=== PATIENT | female | born 1970 | race Caucasian/White ===

== ENCOUNTER 2021-01-22 09:07 | Outpatient (REF) | payer BC, SELFPAY ==
[2021-01-22 11:16] LABS: MANUAL DIFF FLAG NO
[2021-01-22 11:23] LABS: Basophils Percent Auto 0.5 % (0-2); Eosinophils Absolute Auto 0.1 X10*3/uL (0.0-0.4); Eosinophils Percent Auto 1.1 % (0-4); Hematocrit 43.2 % (37-47); Hemoglobin 14.1 g/dl (12.0-16.0); Imm Gran Abs Auto 0.01 X10*3/uL (0.00-0.03); Imm Gran Pct Auto 0.2 % (0.0-0.4); Lymphocytes Percent Auto 36.1 % (20-40); Mean Corpuscular HGB Conc 32.6 g/dl (31.0-35.0); Mean Corpuscular Hemoglobin 30.1 pg (27.0-33.0); Mean Corpuscular Volume 92.1 fL (80-98); Mean Platelet Volume 9.4 fL (9.4-12.3); Monocytes Absolute Auto 0.4 X10*3/uL (0.1-1.2); Monocytes Percent Auto 7.5 % (2-11); Neutrophils Percent Auto 54.6 % (45-73); Platelet Count 287 X10*3/uL (160-400); Red Blood Count 4.69 X10*6/uL (4.20-5.50); Red Cell Distribution Width 12.7 % (11.0-16.0); White Blood Count 5.5 X10*3/uL (4.8-10.8)
[2021-01-22 11:44] LABS: Alanine Aminotransferase 30 U/L (0-31); Anion Gap 12 (12-20); Aspartate Amino Transferase 24 U/L (5-31); Blood Urea Nitrogen 14 mg/dL (9-16); Calcium 9.6 mg/dL (8.4-10.2); Carbon Dioxide 30 mmol/L (22-29); Chloride 102 mmol/L (96-108); Cholesterol 281 mg/dL; Estimated Glomerular Filt Rate > 60; Glucose Fasting 91 mg/dL (60-99); HDL Cholesterol 46 mg/dL; LDL Cholesterol Calculated 168 mg/dl; Potassium 4.3 mmol/L (3.3-5.1); Sodium 140 mmol/L (135-145); Triglycerides 336 mg/dL
[2021-01-22 12:08] LABS: Free T4 (Free Thyroxine) 0.78 ng/dL (0.71-1.85); Thyroid Stimulating Hormone 4.63 uIU/mL (0.32-4.0); Vitamin D 25-OH Total 52.2 ng/mL (>30)
[2021-01-22 12:16] LABS: Folate > 20.0 ng/mL (> or = 4.0); Vitamin B12 720 pg/mL (200-900)
[2021-01-23 19:22] LABS: Thyroid Peroxidase Antibodies 1 IU/mL (<9)
[2021-01-24 16:16] LABS: HPV mRNA E6/E7 rflx Not Detected (Not Detected)
== END 2021-01-22 09:08 | disposition home or self-care (01) ==
LOC: HO.HMGCLDS 09:07
PROVIDERS: PCP Internal Medicine; Visit Provider Internal Medicine
DX: Z00.01 Encounter for general adult medical examination with abnormal findings (principal); Z11.51 Encounter for screening for human papillomavirus (HPV); Z78.0 Asymptomatic menopausal state; R53.81 Other malaise; R53.83 Other fatigue; E66.9 Obesity, unspecified; I10 Essential (primary) hypertension; E03.9 Hypothyroidism, unspecified
CPT/HCPCS: 36415; 80048; 80061; 82306; 82607; 82746; 84439; 84443; 84450; 84460; 85025; 86376; 87624; 88142

== ENCOUNTER 2021-03-28 08:02 | Outpatient (REF) | payer BC, SELFPAY ==
--- NOTE | ~2021-03-28 | MM_ITS ---
EXAMINATION: MM SCREENING DIGITAL BREAST TOMOSYNTHESIS, BILATERAL CLINICAL INFORMATION: Screening. Asymptomatic. The lifetime risk of breast cancer based on the Tyrer-Cuzick Model is 6%. COMPARISON: Mammography: 04/27/2019, 05/29/2014 TECHNIQUE: Digital breast tomosynthesis is performed in both the craniocaudal and mediolateral oblique views along with computer-aided detection (CAD). Synthesized 2D images are generated from the tomosynthesis. FINDINGS: There are scattered areas of fibroglandular density (ACR BI-RADS breast composition Category b). There are no significant masses, abnormal calcifications, or other abnormalities. Parenchymal pattern is similar to prior studies. No developing density. No architectural abnormality. The axilla and skin contours are unremarkable. MM/MM tomosynthesis screening BI IMPRESSION: There are no significant changes from prior study. ASSESSMENT: BI-RADS 1: Negative RECOMMENDATION: Routine annual mammography screening. This patient's information was entered into a reminder system with a target due date for their next mammogram.
== END 2021-03-28 08:03 | disposition home or self-care (01) ==
LOC: HO.MAMMO 08:02
PROVIDERS: Visit Provider Internal Medicine
DX: Z12.31 Encounter for screening mammogram for malignant neoplasm of breast (principal)
CPT/HCPCS: 77063; 77067

== ENCOUNTER 2022-05-15 08:39 | Outpatient (REF) | payer BC, SELFPAY ==
--- NOTE | ~2022-05-15 | MM_ITS ---
EXAMINATION: MM SCREENING DIGITAL BREAST TOMOSYNTHESIS, BILATERAL CLINICAL INFORMATION: Screening. Asymptomatic. The lifetime risk of breast cancer based on the Tyrer-Cuzick Model is 6%. COMPARISON: Mammography: 03/28/2021, 04/27/2019, 05/29/2014 TECHNIQUE: Digital breast tomosynthesis is performed in both the craniocaudal and mediolateral oblique views along with computer-aided detection (CAD). Synthesized 2D images are generated from the tomosynthesis. FINDINGS: There are scattered areas of fibroglandular density (ACR BI-RADS breast composition Category b). There are no significant masses, abnormal calcifications, or other abnormalities. Parenchymal pattern is similar to prior studies. No architectural abnormality. No significant changes. MM/MM tomosynthesis screening BI IMPRESSION: No mammographic evidence of malignancy. ASSESSMENT: BI-RADS 1: Negative RECOMMENDATION: Routine annual mammography screening. This patient's information was entered into a reminder system with a target due date for their next mammogram.
== END 2022-05-15 08:40 | disposition home or self-care (01) ==
LOC: HO.MAMMO 08:39
PROVIDERS: PCP Internal Medicine; Visit Provider Internal Medicine
DX: Z12.31 Encounter for screening mammogram for malignant neoplasm of breast (principal)
CPT/HCPCS: 77063; 77067

== ENCOUNTER 2022-06-16 09:51 | Outpatient (AMB) | payer BC, SELFPAY ==
--- NOTE | 2022-06-16 09:54 | MHC.PC.OV ---
Vital Signs 06/16/22 09:57 Height 5 ft 1 in Weight 163 lb BMI 30.8 BP 120/72 Blood Pressure Location Lt brachial Position Sitting Pulse 87 Pulse Source Pulse Oximeter Pulse Oximetry (%) 97 Oxygen Delivery Method Room Air Intake Visit Reasons: f/u [facility] stomach pain Intake Note: Pt is here today to f/u [facility] stomach pain Allergies Penicillins Allergy (Unknown, Verified 06/03/23 09:53) HIVES,RASH Medication List - Last Reconciled 06/16/22 by Sumaya Beck MD albuterol sulfate 90 mcg/actuation (ProAir HFA) 2 puffs inhalation Q6H PRN ascorbic acid (vitamin C) mg PO cholecalciferol (vitamin D3) 25 mcg PO DAILY multivitamin 1 tab PO DAILY omega-3 fatty acids (Fish Oil Concentrate) 1,000 mg PO BID Tobacco use date assessed: 06/16/22 HPI f/u [facility] [facility] stomach pain HPI Details 53-year-old lady here today for follow-up after recent ER visit where she was treated for acute sigmoid diverticulitis approximately a week ago. CBC at the ER showed slight leukocytosis but otherwise was unremarkable, urinalysis showed no evidence of UTI, and CT abdomen and pelvis showed uncomplicated sigmoid diverticulosis. Patient was discharged home, was able to tolerate p.o. intake, she was prescribed Cipro and Flagyl, and given morphine as needed for pain control. With complaints of any fever, abdominal pain, nausea vomiting at present. [facility] Medical History Mild intermittent asthma Seasonal allergies Acute diverticulitis Acquired hypothyroidism Mixed dyslipidemia Obesity (BMI 30.0-34.9) Surgical History Hx of colonoscopy Social History Housing: House Patient Tobacco Use Status: Former Tobacco user Years Smoked: 8 yrs e-Cigarette/Vaping Use: Never Used service: No Current occupational status: employed Cognitive needs: No Hearing needs: No Vision needs: Yes Questionnaire PHQ-9 Over the last 2 weeks, how often have you been bothered by any of the following problems? 1. Little interest or pleasure in doing things: not at all 2. Feeling down, depressed, or hopeless: not at all 3. Trouble falling or staying asleep, or sleeping too much: several days 4. Feeling tired or having little energy: several days 5. Poor appetite or overeating: not at all 6. Feeling bad about yourself - or that you are a failure or have let yourself or your family down: not at all 7. Trouble concentrating on things, such as reading the newspaper or watching television: not at all 8. Moving or speaking so slowly that other people could have noticed. Or the opposite - being so fidgety or restless that you have been moving around a lot more than usual: not at all 9. Thoughts that you would be better off or of hurting yourself in some way: not at all Total score: 2 Depression Screening Interpretation: Negative 85311 - PHQ-9 Billing: Yes Source: Developed by Drs. Rafael Fountain, Rosey Mercado, Dante Sheldon and colleagues, with an educational allison from [employer]. Thrive Questionnaire Date Thrive assessed: 01/22/21 What is your living situation today?: I have a steady place to live Within the past 12 months, did the food you bought not last and you didn't have the money to get more?: Never true Within the past 12 months, did you worry whether your food would run out before you got money to buy more?: Never true Do you have trouble paying for medicines?: No Do you have trouble getting transportation to medical appointments?: No Do you have trouble paying your heating and electricity bill?: No Do you have trouble taking care of your child, family member or friend?: No Do you have trouble with day-to-day activities such as bathing, preparing meals, shopping, managing finances, etc.?: No Are you currently unemployed and looking for a job?: No Are you interested in more education?: No AUDIT C Alcohol Use Questionnaire (AUDIT-C) 1. How often do you have a drink containing alcohol?: Monthly or less 2. How many drinks containing alcohol do you have on a typical day when you are drinking?: 1 or 2 3. How often do you have six or more drinks on one occasion?: Never Total Score: 1 Score Reviewed/Action Taken: Yes CHERI-7 AMB Questionnaire CHERI-7 Date CHERI - 7 assessed: 06/16/22 Feeling nervous, anxious, or on edge: 1 = Several days Not being able to stop or control worryin = Several days Worrying too much about different things: 1 = Several days Trouble relaxin = Not at all Being so restless that it is hard to sit still: 0 = Not at all Becoming easily annoyed or irritable: 1 = Several days Feeling afraid as if something awful might happen: 0 = Not at all Total CHERI-7 score (0-4 normal; 5-9 mild; 10-14 moderate; 15-21 severe): 4 Source: Developed by Drs. Rafael Fountain, Rosey Mercado, Dante Sheldon and colleagues, with an educational allison from [employer]. CHERI-7 Assessment Billing CHERI-7 Assessment Tool: CHERI-7 Assessment 93279 Review of Systems Const All systems reviewed & are unremarkable except as noted in HPI and below Physical exam (Primary Care) Vital Signs: Last Vital Signs Pulse 87 06/16/22 09:57 BP 120/72 06/16/22 09:57 Pulse Ox 97 06/16/22 09:57 Oxygen Delivery Method Room Air 06/16/22 09:57 BMI result Body Mass Index 30.8 Tobacco/Smoking Status: Tobacco use Status Tobacco use date assessed 06/16/22 06/16/22 10:00 Patient Tobacco Use Status Former Tobacco user 06/16/22 09:55 e-Cigarette/Vaping Use Never Used 06/16/22 09:55 PHQ-9: PHQ-9 Score PHQ-9: Total score 2 06/16/22 11:47 Depression Screening Interpretation: Negative Thrive Assessment: Date of Thrive Assessment Date Thrive assessed 01/22/21 06/16/22 09:55 HENMT Head: Yes normocephalic Mouth: Normal oral and palatal mucosa present and moist mucous membranes Resp Auscultation: clear to auscultation bilaterally Cardio Rate: regular rate Rhythm: regular rhythm Heart sounds: S1 normal heart sound present and S2 normal heart sound present GI Inspection: Yes normal to inspection Palpation (GI): Soft to palpation, nontender, no guarding and no masses Assessment and Plan Assessment & Plan (1) Acute diverticulitis: Code(s): K57.92 - Diverticulitis of intestine, part unspecified, without perforation or abscess without bleeding Plan: Currently symptomatic, will repeat another CBC with differential. Patient already completed taking all her prescribed antibiotic Orders: Orders Complete Blood Count Auto Diff 06/16/22 K57.92 - Diverticulitis of intestine, part unspecified, without perforation or abscess without bleeding Coding Level of Care Code Est Pt Level 3 (05570) Diagnoses Acute diverticulitis K57.92 Additional Codes CHERI-7 Assessment Billing - CHERI-7 Assessment Tool: CHERI-7 Assessment 13325 ([id number])
[2022-06-16 09:57] VITALS: BP 120/72; PULSE 87; O2SAT 97; BMI 30.8
== END 2022-06-16 11:49 | disposition home or self-care (01) ==
LOC: HO.HMGC 09:52
PROVIDERS: PCP Internal Medicine; Visit Provider Internal Medicine
DX: K57.92 Diverticulitis of intestine, part unspecified, without perforation or abscess without bleeding (principal)
CPT/HCPCS: 99499

== ENCOUNTER 2022-06-16 10:44 | Outpatient (REF) | payer BC, SELFPAY ==
[2022-06-16 13:59] LABS: MANUAL DIFF FLAG NO
[2022-06-16 14:17] LABS: Basophils Absolute Auto 0.1 X10*3/uL (0.0-0.2); Eosinophils Absolute Auto 0.1 X10*3/uL (0.0-0.4); Eosinophils Percent Auto 1.3 % (0-4); Hematocrit 39.4 % (37.0-47.0); Hemoglobin 12.6 g/dl (12.0-16.0); Imm Gran Abs Auto 0.02 X10*3/uL (0.00-0.03); Imm Gran Pct Auto 0.3 % (0.0-0.4); Lymphocytes Absolute Auto 1.7 X10*3/uL (1.2-4.9); Lymphocytes Percent Auto 28.5 % (20-40); Mean Corpuscular Hemoglobin 29.4 pg (27.0-33.0); Mean Corpuscular Volume 91.8 fL (80.0-98.0); Mean Platelet Volume 9.4 fL (9.4-12.3); Monocytes Absolute Auto 0.5 X10*3/uL (0.1-1.2); Monocytes Percent Auto 8.2 % (2-11); Neutrophils Absolute Auto 3.7 x10*3/uL (2.0-8.3); Neutrophils Percent Auto 60.7 % (45-73); Platelet Count 385 X10*3/uL (160-400); Red Blood Count 4.29 X10*6/uL (4.20-5.50); Red Cell Distribution Width 12.5 % (11.0-16.0); White Blood Count 6.1 X10*3/uL (4.8-10.8)
== END 2022-06-16 10:45 | disposition home or self-care (01) ==
LOC: HO.HMGCLDS 10:44
PROVIDERS: PCP Internal Medicine; Visit Provider Internal Medicine
DX: K57.92 Diverticulitis of intestine, part unspecified, without perforation or abscess without bleeding (principal)
CPT/HCPCS: 36415; 85025

== ENCOUNTER 2023-03-24 15:26 | Outpatient (AMB) | payer BC, SELFPAY ==
[2023-03-24 16:07] VITALS: BP 148/90; PULSE 79; TEMP 36.3; O2SAT 98; BMI 31.2
--- NOTE | 2023-03-24 16:07 | MHC.OFFWIV ---
Intake Vital Signs 03/24/23 16:07 Height 5 ft 1 in Weight 165 lb BMI 31.2 BP 148/90 H Blood Pressure Location Rt brachial Position Sitting Pulse 79 Pulse Source Pulse Oximeter Temp 97.4 F Temp Source Temporal Artery Scan Pulse Oximetry (%) 98 Oxygen Delivery Method Room Air Intake Visit Reasons: EP Migraine Intake Note: pt is here today for migraine started last 3 months Patient Tobacco Use Status: Former Tobacco user Allergies Penicillins Allergy (Unknown, Verified 03/24/23 16:55) HIVES,RASH Do you need a note to return to daycare/school/sports/work: No HPI HPI Comments History of Present Illness Details This is a 52-year-old female with past medical history of hyperlipidemia and hyperthyroidism not currently taking any prescribed medications presenting for evaluation of a headache that she has had daily for the past 3 months. Patient reports having increased stressors in her life including caring for her mother and stress at her workplace. Patient is taking Advil only without relief of her headache. Patient states that she has recently been evaluated for visual changes in her left eye for which she is going to see a neuro-forest fire equipment operator in [place]. Patient is unaware of the last time she saw her primary care physician however has been told previously that her blood pressure has been elevated. Patient denies having any lightheadedness, syncope, neck pain, fevers, chills or chest pain. [facility] Medical History Acute diverticulitis Acquired hypothyroidism Mixed dyslipidemia Obesity (BMI 30.0-34.9) Mild intermittent asthma Surgical History Hx of colonoscopy Social History Housing: House Patient Tobacco Use Status: Former Tobacco user Years Smoked: 8 yrs e-Cigarette/Vaping Use: Never Used service: No Current occupational status: employed Cognitive needs: No Hearing needs: No Vision needs: Yes Review of Systems Const All systems reviewed & are unremarkable except as noted in HPI and below Denies chills, Denies difficulty sleeping, Denies fever(s) and Denies weakness Eyes Reports no additional complaints and Reports other (visual changes left eye) ENT Reports no additional complaints and Reports Normal hearing present Card Reports as per HPI Resp Reports as per HPI Skin/Breast Reports system reviewed and no additional complaints, except as documented Neuro Details: daily headaches Reports Normal hearing present, Reports Abnormal speech present and Denies weakness Psych Reports anxiety Physical Exam Vital Signs: Last Vital Signs Temp 97.4 F 03/24/23 16:07 Pulse 79 03/24/23 16:07 BP 148/90 H 03/24/23 16:07 Pulse Ox 98 03/24/23 16:07 Oxygen Delivery Method Room Air 03/24/23 16:07 BMI result Body Mass Index 31.2 Const General: cooperative, healthy appearing, comfortable and no acute distress Nutritional Appearance: well nourished Orientation/consciousness: patient oriented x3 Limitations: no limitations HEENT Head: Yes normocephalic and Yes atraumatic Ears: hearing grossly normal bilaterally, external ears normal, TM's normal bilaterally and EAC's normal General nose exam: Normal external nose present Face and sinus: Yes normal facial exam, No sinus tenderness and No Facial tenderness on exam of face and sinuses Mouth: Normal oral and palatal mucosa present Teeth and gingiva: dentition normal Eyes General: appearance normal, both eyes and all related structures Alignment and Position: alignment normal Eyelids: Yes eyelids normal Conjunctivae: conjunctivae normal Sclerae: sclerae normal Pupils: Equal, round and reactive pupils present Direct Ophthalmoscopy: no photophobia Resp Effort & Inspection: normal respiratory effort Auscultation: clear to auscultation bilaterally Cardio Rate: regular rate Rhythm: regular rhythm Neuro General: patient oriented x3, gait normal, no focal motor deficits and CN's II-XI intact bilaterally Cranial nerves: Yes CN's II-XII intact bilaterally, Yes Equal, round and reactive pupils present, Yes Midline tongue present and Yes Normal hearing present Cognition (Neuro): normal cognition Speech: Abnormal speech present Gait exam (Neuro): Normal gait present Psych Appearance: grossly normal Mental Status: mental status grossly normal Attitude: cooperative Insight: Good insight present (Psych) Judgement: Good judgement present (Psych) Assessment & Plan Assessment & Plan (1) Chronic headaches: Code(s): R51.9 - Headache, unspecified; G89.29 - Other chronic pain Plan: Patient will be prescribed Fioricet; patient is encouraged to follow-up with her PCP when possible for a complete physical examination. She is neurologically intact, there are no focal neurological deficits and patient was urged to consider a higher level of self-care given the caregiver status in terms of her mother. Patient will call tomorrow to schedule follow-up with her PCP. Medications: New yskmkwigez-sdashodtvjzxi-koat 50-300-40 mg (Fioricet) 1 cap PO Q6H PRN 10 caps 0RF pain Coding Level of Care Code Est Pt Level 3 (88702) Diagnoses Chronic headaches R51.9; G89.29 Time Spent (min) 25
== END 2023-03-24 17:55 | disposition home or self-care (01) ==
PROVIDERS: PCP Internal Medicine; Visit Provider Physician Assistant
DX: R51.9 Headache, unspecified (principal); G89.29 Other chronic pain
CPT/HCPCS: 99213

== ENCOUNTER 2023-05-21 08:32 | Outpatient (REF) | payer BC, SELFPAY | END 2023-05-21 08:33 | disposition home or self-care (01) | LOC: HO.MAMMO 08:32 | PROVIDERS: PCP Internal Medicine; Visit Provider Internal Medicine | DX: Z12.31 Encounter for screening mammogram for malignant neoplasm of breast (principal) | CPT/HCPCS: 77063; 77067 ==

== ENCOUNTER → 2023-05-21 08:45 | Outpatient (BNV) | payer BC, SELFPAY | PROVIDERS: PCP Internal Medicine; Visit Provider Radiology Diagnostic Radiology | DX: Z12.31 Encounter for screening mammogram for malignant neoplasm of breast (principal) | CPT/HCPCS: 77063; 77067 ==

== ENCOUNTER 2023-06-03 09:26 | Outpatient (AMB) | payer BC, SELFPAY ==
[2023-06-03 09:34] VITALS: BP 135/80; PULSE 88; O2SAT 100; BMI 31.2
--- NOTE | 2023-06-03 09:34 | MHC.PC.OV ---
Vital Signs 06/03/23 09:34 Height 5 ft 1 in Weight 165 lb BMI 31.2 BP 135/80 Blood Pressure Location Rt brachial Position Sitting Pulse 88 Pulse Source Pulse Oximeter Pulse Oximetry (%) 100 Oxygen Delivery Method Room Air Intake Visit Reasons: PE/pap Intake Note: Pt is here today for her PE and papsmear: Last mammogram 05/21/23, papsmear 01/23/21 and colonoscopy 08/29/19 Post menopausal: Yes Allergies Penicillins Allergy (Unknown, Verified 06/03/23 09:53) HIVES,RASH Medication List - Last Reconciled 06/03/23 by Sumaya Beck MD albuterol sulfate 90 mcg/actuation (ProAir HFA) 2 puffs inhalation Q6H PRN Tobacco use date assessed: 06/03/23 Dental Screening Dental Screen Date: 06/03/23 Did you have a dental visit in the last 12 months?: Yes Did you have a dental problem in the last 6 months where you did not have access to dental care?: Yes Was dental information given to patient?: Patient has dentist HPI PE/pap HPI Details 53-year-old lady here today for physical exam. Her last mammogram was done 05/21/23, papsmear 01/23/21 and colonoscopy 08/29/19, due for repeat colonoscopy in [address] Carrera due to positive family history of colon cancer and removal of polyp on last procedure. She has hypothyroidism, currently not on any medication at present time, clinically euthyroid on last visit. She has mild intermittent asthma, rarely needing to use her inhaler, takes [id number] antihistamines for seasonal allergies. She has mixed hyperlipidemia, currently trying to control through diet and exercise. [facility] Medical History Mild intermittent asthma Seasonal allergies Acute diverticulitis Acquired hypothyroidism Mixed dyslipidemia Obesity (BMI 30.0-34.9) Surgical History Hx of colonoscopy Social History Housing: House Patient Tobacco Use Status: Former Tobacco user Years Smoked: 8 yrs e-Cigarette/Vaping Use: Never Used service: No Current occupational status: employed Cognitive needs: No Hearing needs: No Vision needs: Yes Questionnaire PHQ-9 Over the last 2 weeks, how often have you been bothered by any of the following problems? 1. Little interest or pleasure in doing things: several days 2. Feeling down, depressed, or hopeless: not at all 3. Trouble falling or staying asleep, or sleeping too much: several days 4. Feeling tired or having little energy: several days 5. Poor appetite or overeating: several days 6. Feeling bad about yourself - or that you are a failure or have let yourself or your family down: not at all 7. Trouble concentrating on things, such as reading the newspaper or watching television: not at all 8. Moving or speaking so slowly that other people could have noticed. Or the opposite - being so fidgety or restless that you have been moving around a lot more than usual: not at all 9. Thoughts that you would be better off or of hurting yourself in some way: not at all Total score: 4 Depression Screening Interpretation: Negative Depression Screening Done: Yes [id number] - PHQ-9 Billing: Yes Source: Developed by Drs. Rafael Fountain, Rosey Mercado, Dante Sheldon and colleagues, with an educational allison from [employer]. Thrive Questionnaire Date Thrive assessed: 06/03/23 I am a: Patient What is your living situation today?: I have a steady place to live Within the past 12 months, did the food you bought not last and you didn't have the money to get more?: Never true Within the past 12 months, did you worry whether your food would run out before you got money to buy more?: Never true Do you have trouble paying for medicines?: No Do you have trouble getting transportation to medical appointments?: No Do you have trouble paying your heating and electricity bill?: No Do you have trouble taking care of your child, family member or friend?: No Do you have trouble with day-to-day activities such as bathing, preparing meals, shopping, managing finances, etc.?: No Are you currently unemployed and looking for a job?: No Are you interested in more education?: No THRIVE Score: 0 AUDIT C Alcohol Use Questionnaire (AUDIT-C) 1. How often do you have a drink containing alcohol?: Monthly or less 2. How many drinks containing alcohol do you have on a typical day when you are drinking?: 1 or 2 3. How often do you have six or more drinks on one occasion?: Never Total Score: 1 CHERI-7 AMB Questionnaire CHERI-7 Date CHERI - 7 assessed: 06/03/23 Feeling nervous, anxious, or on edge: 1 = Several days Not being able to stop or control worryin = Several days Worrying too much about different things: 1 = Several days Trouble relaxin = Not at all Being so restless that it is hard to sit still: 0 = Not at all Becoming easily annoyed or irritable: 1 = Several days Feeling afraid as if something awful might happen: 0 = Not at all Total CHERI-7 score (0-4 normal; 5-9 mild; 10-14 moderate; 15-21 severe): 4 Source: Developed by Drs. Rafael Fountain, Rosey Mercado, Dante Sheldon and colleagues, with an educational allison from [employer]. CHERI-7 Assessment Billing CHERI-7 Assessment Tool: CHERI-7 Assessment 61588 Review of Systems Const Denies chills, Denies difficulty sleeping, Denies fever(s) and Denies weakness Eyes Details: Complaining of distortion of vision in left eye, currently seeing [facility] neuro ophthalmology department and is to be scheduled for an MRI of the orbits Sees [place] [facility] for her regular eye exam Reports other (visual changes left eye) ENT Reports no additional complaints Card Reports no additional complaints and Denies dyspnea Resp Denies chest congestion, Denies cough, Denies dyspnea and Denies wheezing GI Reports no additional complaints Reports no additional complaints Musc Reports no additional complaints Skin/Breast Denies breast pain, Denies breast mass, Denies lesions and Denies rash Neuro Denies weakness Psych Reports as per HPI Endo Reports no additional complaints Moreno/Lymph Reports no additional complaints Aller/Immun Reports as per HPI and Denies wheezing Physical exam (Primary Care) Vital Signs: Last Vital Signs Pulse 88 06/03/23 09:34 BP 135/80 06/03/23 09:34 Pulse Ox 100 06/03/23 09:34 Oxygen Delivery Method Room Air 06/03/23 09:34 BMI result Body Mass Index 31.2 Tobacco/Smoking Status: Tobacco use Status Tobacco use date assessed 06/03/23 06/03/23 09:39 Patient Tobacco Use Status Former Tobacco user 06/03/23 09:39 e-Cigarette/Vaping Use Never Used 06/03/23 09:39 PHQ-9: PHQ-9 Score PHQ-9: Total score 4 06/05/23 15:37 Depression Screening Interpretation: Negative Thrive Assessment: Date of Thrive Assessment Date Thrive assessed 06/03/23 06/03/23 09:59 Const Orientation/consciousness: patient oriented x3 HENMT Head: Yes normocephalic Ears: hearing grossly normal bilaterally, external ears normal and TM's normal bilaterally General nose exam: Normal external nose present Face and sinus: Yes face symmetric Mouth: Normal oral and palatal mucosa present, oropharynx normal and moist mucous membranes Eyes General: appearance normal, both eyes and all related structures Neck Neck: Yes normal visual inspection, Yes full ROM, Yes no lymphadenopathy and Yes supple Thyroid: Thyroid normal (Nonpalpable) Chest Chest palpation & inspection: normal inspection of the chest Breast/axilla inspection: normal inspection of the breasts Breast/axilla palpation: normal palpation of the breasts Resp Auscultation: clear to auscultation bilaterally Cardio Rate: regular rate Rhythm: regular rhythm Heart sounds: S1 normal heart sound present and S2 normal heart sound present GI Inspection: Yes normal to inspection Palpation (GI): Soft to palpation, nontender, no guarding and no masses General: Yes bladder normal to inspection, Yes bladder normal to palpation and Yes no CVA tenderness External Female Exam: normal external appearance and normal appearance of the urethra Speculum Exam - Vagina: normal appearance of the vagina, normal palpation and normal vaginal discharge Speculum Exam - Cervix: normal appearance of the cervix, normal palpation and Cervical os open Bimanual exam- vagina & uterus: normal palpation, bladder normal to palpation, normal palpation and non-tender Bimanual Exam- Adnexa, other: normal adnexae, no masses, normal and No adnexal tenderness OB/external & speculum: Cervical os open Back/Spine/Pelvis Back: no CVA tenderness and No back tenderness Skin General skin exam: no rashes or lesions noted Neuro General: patient oriented x3, gait normal, tone normal, moves all extremities, Normal light touch and pain sensation and no focal motor deficits Gait exam (Neuro): Normal gait present Extrem General: Yes full ROM, Yes no joint enlargement, Yes no pedal edema and Yes normal gait Psych Appearance: grossly normal and well kempt Mental Status: mental status grossly normal Speech and movement: Normal speech and movement present Affect: normal affect Attitude: cooperative Thought process: Normal thought process present Thought content: Normal thought content present Assessment and Plan Assessment & Plan (1) Annual visit for general adult medical examination with abnormal findings: Code(s): Z00.01 - Encounter for general adult medical examination with abnormal findings Plan: Will check appropriate labs. Continue regular dental visit every 6 months and regular eye exams, currently has an appointment for follow-up with [facility] Neuro-Ophthalmology department. Take adequate calcium in diet and vitamin-D 3 at 2000 IU per cap once a day, in addition to weight-bearing exercises to help maintain good muscle tone and weight control. Instructed to do self-breast exam, and continue yearly mammogram. Cervical cancer screening and pelvic exam done today, Colonoscopy up-to-date, due again in 2024 . Declined getting any COVID booster flu vaccine, (2) Acquired hypothyroidism: Code(s): E03.9 - Hypothyroidism, unspecified Plan: TSH and free T4 ordered (3) Mixed dyslipidemia: Code(s): E78.2 - Mixed hyperlipidemia Plan: Fasting lipid panel ordered today, reinforced importance of following low-cholesterol diet and getting regular exercise. (4) Obesity (BMI 30.0-34.9): Code(s): E66.9 - Obesity, unspecified Plan: Discussed need to increase activity and wt reduction. Recommended focusing on improving your health instead of dieting. : Eat Mediterranean diet, limit foods high in fat, sugar, and calories, eat slowly, pay attention to portion sizes, plan your meals ahead of time, start regular physical activity 150 minutes of moderate intensity exercise or 90 minutes/week of cardio exercise (5) Cervical cancer screening: Code(s): Z12.4 - Encounter for screening for malignant neoplasm of cervix Plan: Pap smear done today Orders: Orders Free T4 (Free Thyroxine) 06/03/23 E03.9 - Hypothyroidism, unspecified, E66.9 - Obesity, unspecified, E78.2 - Mixed hyperlipidemia, J30.2 - Other seasonal allergic rhinitis, Z00.01 - Encounter for general adult medical examination with abnormal findings Lipid Panel 06/03/23 E03.9 - Hypothyroidism, unspecified, E66.9 - Obesity, unspecified, E78.2 - Mixed hyperlipidemia, J30.2 - Other seasonal allergic rhinitis, Z00.01 - Encounter for general adult medical examination with abnormal findings Aspartate Amino Transferase 06/03/23 E03.9 - Hypothyroidism, unspecified, E66.9 - Obesity, unspecified, E78.2 - Mixed hyperlipidemia, J30.2 - Other seasonal allergic rhinitis, Z00.01 - Encounter for general adult medical examination with abnormal findings Vitamin B12 and Folate 06/03/23 E03.9 - Hypothyroidism, unspecified, E66.9 - Obesity, unspecified, E78.2 - Mixed hyperlipidemia, J30.2 - Other seasonal allergic rhinitis, Z00.01 - Encounter for general adult medical examination with abnormal findings Vitamin D 25-OH Total 06/03/23 E03.9 - Hypothyroidism, unspecified, E66.9 - Obesity, unspecified, E78.2 - Mixed hyperlipidemia, J30.2 - Other seasonal allergic rhinitis, Z00.01 - Encounter for general adult medical examination with abnormal findings Pap Smear 06/03/23 Z12.4 - Encounter for screening for malignant neoplasm of cervix Thyroid Stimulating Hormone 06/03/23 E03.9 - Hypothyroidism, unspecified, E66.9 - Obesity, unspecified, E78.2 - Mixed hyperlipidemia, J30.2 - Other seasonal allergic rhinitis, Z00.01 - Encounter for general adult medical examination with abnormal findings Thyroid Peroxidase Antibodies 06/03/23 E03.9 - Hypothyroidism, unspecified, E66.9 - Obesity, unspecified, E78.2 - Mixed hyperlipidemia, J30.2 - Other seasonal allergic rhinitis, Z00.01 - Encounter for general adult medical examination with abnormal findings Basic Metabolic Panel Fasting 06/03/23 E03.9 - Hypothyroidism, unspecified, E66.9 - Obesity, unspecified, E78.2 - Mixed hyperlipidemia, J30.2 - Other seasonal allergic rhinitis, Z00.01 - Encounter for general adult medical examination with abnormal findings Alanine Aminotransferase 06/03/23 E03.9 - Hypothyroidism, unspecified, E66.9 - Obesity, unspecified, E78.2 - Mixed hyperlipidemia, J30.2 - Other seasonal allergic rhinitis, Z00.01 - Encounter for general adult medical examination with abnormal findings Coding Level of Care Code Est Pt Prev Care 40-64y(46694) Diagnoses Annual visit for general adult medical examination with abnormal findings Z00.01 Acquired hypothyroidism E03.9 Mixed dyslipidemia E78.2 Obesity (BMI 30.0-34.9) E66.9 Cervical cancer screening Z12.4 Additional Codes CHERI-7 Assessment Billing - CHERI-7 Assessment Tool: CHERI-7 Assessment [id number] ([id number])
== END 2023-06-03 11:11 | disposition home or self-care (01) ==
PROVIDERS: PCP Internal Medicine; Visit Provider Internal Medicine
DX: Z00.00 Encounter for general adult medical examination without abnormal findings (principal); E03.9 Hypothyroidism, unspecified; E66.9 Obesity, unspecified; Z68.31 Body mass index [BMI] 31.0-31.9, adult; E78.2 Mixed hyperlipidemia
CPT/HCPCS: 99396

== ENCOUNTER 2023-06-03 10:28 | Outpatient (REF) | payer BC, SELFPAY ==
[2023-06-11 03:59] LABS: HPV mRNA E6/E7 rflx Not Detected (Not Detected)
== END 2023-06-03 10:29 | disposition home or self-care (01) ==
LOC: HO.LNP 10:28
PROVIDERS: Visit Provider Internal Medicine
DX: Z12.4 Encounter for screening for malignant neoplasm of cervix (principal); Z11.51 Encounter for screening for human papillomavirus (HPV)
CPT/HCPCS: 87624; 88142

== ENCOUNTER 2023-06-13 06:31 | Outpatient (REF) | payer BC, SELFPAY ==
[2023-06-13 12:19] LABS: Alanine Aminotransferase 19 U/L (0-31); Anion Gap 11 (12-20); Aspartate Amino Transferase 16 U/L (5-31); Blood Urea Nitrogen 13 mg/dL (9-16); Calcium 9.3 mg/dL (8.4-10.2); Carbon Dioxide 27 mmol/L (22-29); Chloride 106 mmol/L (96-108); Cholesterol 256 mg/dL (<200); Estimated Glomerular Filt Rate > 60; Glucose Fasting 95 mg/dL (60-99); HDL Cholesterol 44 mg/dL (>40); LDL Cholesterol Calculated 155 mg/dL (<100); Potassium 3.8 mmol/L (3.3-5.1); Sodium 140 mmol/L (135-145); Triglycerides 286 mg/dL (<150)
[2023-06-13 12:25] LABS: Thyroid Stimulating Hormone 4.87 uIU/mL (0.32-4.0); Vitamin D 25-OH Total 55.7 ng/mL (>30)
[2023-06-13 12:36] LABS: Folate 11.2 ng/mL (> or = 4.0); Vitamin B12 412 pg/mL (200-900)
[2023-06-14 18:04] LABS: Thyroid Peroxidase Antibodies <1 IU/mL (<9)
== END 2023-06-13 06:32 | disposition home or self-care (01) ==
LOC: HO.HMGCLDS 06:31
PROVIDERS: PCP Internal Medicine; Visit Provider Internal Medicine
DX: Z00.01 Encounter for general adult medical examination with abnormal findings (principal); E03.9 Hypothyroidism, unspecified; E78.2 Mixed hyperlipidemia; E66.9 Obesity, unspecified; J30.2 Other seasonal allergic rhinitis
CPT/HCPCS: 36415; 80048; 80061; 82306; 82607; 82746; 84439; 84443; 84450; 84460; 86376

== ENCOUNTER 2024-06-06 07:51 | Outpatient (REF) | payer BC, SELFPAY | END 2024-06-06 07:52 | disposition home or self-care (01) | LOC: HO.MAMMO 07:51 | PROVIDERS: PCP Internal Medicine; Visit Provider Internal Medicine | DX: Z12.31 Encounter for screening mammogram for malignant neoplasm of breast (principal) | CPT/HCPCS: 77063; 77067 ==

== ENCOUNTER → 2024-06-06 08:00 | Outpatient (BNV) | payer BC, SELFPAY | PROVIDERS: PCP Internal Medicine; Visit Provider Internal Medicine | DX: Z12.31 Encounter for screening mammogram for malignant neoplasm of breast (principal) | CPT/HCPCS: 77063; 77067 ==